=== PATIENT | female | born 1990 | race Caucasian/White ===

== ENCOUNTER → 2019-01-14 | Outpatient (CLI) | payer OTHER ==
[2016-07-07 12:57] VITALS: BMI 27.6
[~2019-01-14] MED LIST: ACET-1718 PO; IBUP800T37 PO; METO-734 PO; PREN-127 PO; PROM-110 PO; PROM25SU8 PR
== END ==
LOC: LAB 09:45
PROVIDERS: ATTEND Emergency Medicine
DX: Z01.84 Encounter for antibody response examination (principal)
CPT/HCPCS: 86735